=== PATIENT | male | born 1950 | race Caucasian/White ===

== ENCOUNTER 2018-11-01 14:28 | Emergency (ER) | payer MEDICARE, OTHER, SELFPAY ==
[2018-11-01 14:36] VITALS: BP 146/78; PULSE 125; RESP 18; TEMP 36.9; O2SAT 96; BMI 32.3
--- NOTE | 2018-11-01 14:43 | ED_ITS ---
HPI - Male Genitourinary <Evie Vazquez PA-C - Last Filed: 11/01/18 21:01> General Chief complaint: Urogenital-Male Stated complaint: pain with urination, constipated, red urine Time Seen by Provider: 11/01/18 14:40 Source: patient Mode of arrival: ambulatory Limitations: no limitations History of Present Illness HPI Narrative: This 68-year-old male comes to ED secondary to urinary symptoms. He states that last night, he developed a lot of urinary frequency, urinating every 30-40 minutes with urgency (he states he has frequent urination typically due to BPH, but this is much more). Today he developed dysuria, maybe with a pink tinge. He states that he felt like he had to have a bowel movement last night but did not. He had a normal bowel movement yesterday or the day before, can't remember which. Normally he does have a bowel movement every day. He denies abdominal pain. He denies any nausea or vomiting. He states that he had some dull flank pain a few hours ago that resolved on its own, does not feel like previous kidney stones. He has some rectal area discomfort when sitting. He states he has had some nasal and head congestion after exposure to a sick grandson, maybe some slight chills/sweats, no known fever. He denies any fever today. He denies any cough, wheeze, dyspnea, chest pain or other new symptoms on systems review. He is on chronic opioid therapy for post hepatic neuralgia, no medication changes Related Data Previous Rx's Medication Instructions Recorded levofloxacin [Levaquin] 500 mg PO DAILY 14 Days #14 tab 11/01/18 phenazopyridine [Pyridium] 200 mg PO Q8H PRN #6 tab 11/01/18 Allergies Allergy/AdvReac Type Severity Reaction Status Date / Time No Known Drug Allergies Allergy Verified 11/01/18 14:38 Review of Systems <Evie Vazquez PA-C - Last Filed: 11/01/18 21:01> Review of Systems ROS Unobtainable: All systems reviewed & are unremarkable except as noted in HPI and below PFSH <Evie Vazquez PA-C - Last Filed: 11/01/18 21:01> Medical History (Updated 11/01/18 @ 16:25 by Evie Vazquez PA-C) BPH (benign prostatic hyperplasia) (Chronic) HTN (hypertension) (Chronic) Non-insulin dependent type 2 diabetes mellitus (Chronic) Post herpetic neuralgia (Chronic) Surgical History (Updated 11/01/18 @ 15:07 by Evie Vazquez PA-C) History of melanoma excision (Resolved) Status post cholecystectomy (Resolved) Social History (Updated 11/01/18 @ 15:07 by Evie Vazquez PA-C) Smoking Status: Former smoker Social History (Updated 11/01/18 @ 15:07 by Evie Vazquez PA-C) Smoking Status: Former smoker Exam <Evie Vazquez PA-C - Last Filed: 11/01/18 21:01> Narrative Exam Narrative: GENERAL APPEARANCE: Patient sitting comfortably, in no distress. LUNGS: Clear to auscultation bilaterally. HEART: Rate and rhythm regular without murmur, normal S1 and S2, no S3 or S4. ABDOMEN: Soft, NT, ND, +BS x 4 quadrants, no CVAT. EXTREMITIES: No edema NEUROLOGIC: Alert, oriented, normal speech, gait, coordination DERMATOLOGIC: No exanthem RECTAL: No external masses or lesions, no palpable prostate mass, normal texture, tender, little stool in vault, guaiac negative Initial Vital Signs Initial Vital Signs: Vital Signs Temperature 98.5 F 11/01/18 14:36 Pulse Rate 125 H 11/01/18 14:36 Respiratory Rate 18 11/01/18 14:36 Blood Pressure 146/78 H 11/01/18 14:36 Pulse Oximetry 96 11/01/18 14:36 <Andreia Orourke DO - Last Filed: 11/02/18 07:52> Initial Vital Signs Initial Vital Signs: Vital Signs Temperature 98.5 F 11/01/18 14:36 Pulse Rate 125 H 11/01/18 14:36 Respiratory Rate 18 11/01/18 14:36 Blood Pressure 146/78 H 11/01/18 14:36 Pulse Oximetry 96 11/01/18 14:36 Course <Evie Vazquez PA-C - Last Filed: 11/01/18 21:01> Additional Information: Patient has symptoms typical of UTI but also some rectal discomfort and prostate tenderness, will treat for prostatitis. Advised return if any acutely worsening or new symptoms over the weekend such as vomiting or fever. Pharmacy advised him to check on whether dose of diabetic meds needs to be changed on Levaquin, however he was not sure what he is taking (verified with the pharmacy glimepiride 4 mg b.i.d.). Spoke with patient, has not ever had hypoglycemia. He does have a blood sugar monitor at home. Advised to continue same dosing over the weekend however to keep some orange or apple juice on hand if noticing symptoms, cut his dose in half. Advised to check morning blood sugar after taking 1st dose today. Orders Ordered: ED Orders 11/01/18 14:38 Urine Culture Stat Urine Microscopic Stat Vital Signs - 8 hr 11/01/18 14:36 11/01/18 16:28 Temperature 98.5 F Pulse Rate 125 H 74 Respiratory Rate 18 16 Blood Pressure 146/78 H 136/72 Pulse Oximetry 96 99 <Andreia Orourke DO - Last Filed: 11/02/18 07:52> Orders Ordered: ED Orders 11/01/18 14:38 Urine Culture Stat Urine Microscopic Stat Vital Signs - 8 hr 11/01/18 14:36 11/01/18 16:28 Temperature 98.5 F Pulse Rate 125 H 74 Respiratory Rate 18 16 Blood Pressure 146/78 H 136/72 Pulse Oximetry 96 99 MDM - Male Genitourinary <Evie Vazquez PA-C - Last Filed: 11/01/18 21:01> Lab Data Lab Results 11/01/18 Range/Units 14:38 Urine RBC 30-100/hpf H (0-5/HPF) Urine WBC 10-30/hpf H (0-5/HPF) Ur Squamous Epith Cells 0-1 /hpf (0-5/HPF) Amorphous Sediment 1+ Urine Bacteria Few (2-10) H (None) Ur Culture Indicated? Specimen cultured Urine Dip Bedside Urine Glucose Negative Bedside Urine Bilirubin - Negative Bedside Urine Ketone - Negative Urine Specific [place] 1.015 Bedside Urine Occult Blood +++ Bedside Urine pH 5.5 Bedside Urine Protein + 30 Bedside Urine Urobilinogen +/- 1mg Bedside Urine Nitrite - Negative Bedside Urine Leukocytes ++ 125 Esterase <Andreia Orourke DO - Last Filed: 11/02/18 07:52> Lab Data Lab Results 11/01/18 Range/Units 14:38 Urine RBC 30-100/hpf H (0-5/HPF) Urine WBC 10-30/hpf H (0-5/HPF) Ur Squamous Epith Cells 0-1 /hpf (0-5/HPF) Amorphous Sediment 1+ Urine Bacteria Few (2-10) H (None) Ur Culture Indicated? Specimen cultured Urine Dip Bedside Urine Glucose Negative Bedside Urine Bilirubin - Negative Bedside Urine Ketone - Negative Urine Specific [place] 1.015 Bedside Urine Occult Blood +++ Bedside Urine pH 5.5 Bedside Urine Protein + 30 Bedside Urine Urobilinogen +/- 1mg Bedside Urine Nitrite - Negative Bedside Urine Leukocytes ++ 125 Esterase Discharge Plan Departure Patient Disposition: Home Clinical Impression: Prostatitis Qualifiers: Prostatitis type: acute Qualified Code(s): N41.0 - Acute prostatitis Discharge Date/Time: 11/01/18 16:32 Interventions: ED Discharge Assessment Last Done: 11/01/18 16:28 Instructions: DI for Urinary Tract Infection (UTI), DI for Acute Prostatitis Activity Restrictions/Additional Instructions: Since you have some prostate tenderness on exam today and discomfort with sitting, I have ordered medicine to treat you for a prostate infection, which can also produce the urinary symptoms that you are having. Please start the antibiotic once daily. I have ordered a few days worth of urinary pain reliever as well to take if helpful. As we talked about, you should return if you have any acutely worsening symptoms or new symptoms such as fever or vomiting as the urine cultures will take a few days to come back. Please follow-up with your PCP next week to assess her progress. Prescriptions: New phenazopyridine [Pyridium] 200 mg tablet 200 mg PO Q8H PRN (Reason: urinary pain) Qty: 6 RF: 0 levofloxacin [Levaquin] 500 mg tablet 500 mg PO DAILY 14 Days Qty: 14 RF: 0 Referrals: [facility] [Other] <Andreia Orourke DO - Last Filed: 11/02/18 07:52> Cosign ED Attending Cj Attestation: I was immediately available in the department for consultation. Documentation has been reviewed. I agree with assessment and plan.
[2018-11-01 15:39] LABS: RBC Urine 30-100/HPF (0-5/HPF); WBC Urine 10-30/HPF (0-5/HPF)
[2018-11-01 15:40] LABS: Amorphous Sediment Urine 1+; Bacteria Urine Few (2-10); Culture Indicated Urine Specimen Cultured; Squamous Epithelial Cell Urine 0-1 /HPF (0-5/HPF)
[2018-11-01 16:28] VITALS: BP 136/72; PULSE 74; RESP 16; O2SAT 99
== END 2018-11-01 16:32 | disposition home or self-care (01) ==
PROVIDERS: Emergency Provider Internal Medicine
DX: N41.0 Acute prostatitis (principal)
CPT/HCPCS: 51798; 81003; 81015; 87077; 87086; 87186; 99283

== ENCOUNTER 2019-05-26 11:39 | Emergency (ER) | payer MEDICARE, OTHER, SELFPAY ==
[2019-05-26 11:47] VITALS: BP 154/43; PULSE 78; RESP 15; TEMP 36.4; O2SAT 97; BMI 32.9
--- NOTE | 2019-05-26 11:49 | DI.RAD.S_ITS ---
PROCEDURE: XR KNEE LT 3V INDICATIONS: pain, injury TECHNIQUE: 3 views of the knee were acquired. COMPARISON: None. FINDINGS: Bones: No fractures or dislocations. No suspicious bony lesions. No patella subluxation. Soft tissues: No joint effusion. No suspicious soft tissue calcifications. Vascular calcifications are noted in posterior left knee. IMPRESSION: No gross acute left knee fracture or dislocation. Dictated by: Lowell Lino M.D. on 05/26/2019 at 12:33 Approved by: Lowell Lino M.D. on 05/26/2019 at 12:37
--- NOTE | 2019-05-26 11:58 | ED.LOWEXIN ---
HPI - Extremity Injury (Lower) <FREDRICK Ndiaye - Last Filed: 05/26/19 18:21> General Chief Complaint: Extremity Injury, Lower Stated Complaint: fell on ice couple days ago L knee still pain Time Seen by Provider: 05/26/19 11:48 Source: patient Mode of arrival: Ambulatory History of Present Illness HPI Narrative: 68-year-old male presents to the emergency department today complaining of left knee pain for the past 4 days. Patient states on Sunday he slipped on the ice and felt like he hyperextended his left knee. He was able to walk on the knee afterwards but complained of a 5/10 sharp stabbing pain with weight-bearing and bending. Patient reports the pain is slightly better when the knee is completely flexed. He denies any history of injuries or surgeries to this knee. Patient has been using crutches to help with weight-bearing. He takes oxycodone daily due to post herpetic neuralgia and states that this has been controlling his pain. He denies hitting his head, neck pain, fevers, chills, nausea, vomiting, diarrhea, foot pain, numbness or tingling, or other concerns. Related Data Home Medications Medication Instructions Recorded Confirmed glimepiride 4 mg PO BID 05/26/19 05/26/19 lisinopril-hydrochlorothiazide 1 tab PO DAILY 05/26/19 05/26/19 oxycodone 5 mg PO TID PRN 05/26/19 05/26/19 oxycodone [OxyContin] 20 mg PO Q12H 05/26/19 05/26/19 tamsulosin 0.4 mg PO DAILY 05/26/19 05/26/19 Allergies Allergy/AdvReac Type Severity Reaction Status Date / Time No Known Drug Allergies Allergy Verified 05/26/19 11:47 Review of Systems <FREDRICK Ndiaye - Last Filed: 05/26/19 18:21> Review of Systems Narrative: REVIEW OF SYSTEMS: GENERAL: Denies fever or chills. HENT: No head trauma. EYES: No double vision or vision loss. CARDIOVASCULAR: No chest pain or syncope. RESPIRATORY: No shortness of breath or cough. GASTROINTESTINAL: No nausea, vomiting, diarrhea, or constipation. GENITOURINARY: No flank pain or dysuria. MUSCULOSKELETAL: Complains of left knee pain, see HPI. INTEGUMENTARY: No rash, lesions, or pruritus. NEURO: No numbness, tingling. PSYCH: No behavior or mood changes. Patient History <FREDRICK Ndiaye - Last Filed: 05/26/19 18:21> Medical History BPH (benign prostatic hyperplasia) (Chronic) HTN (hypertension) (Chronic) Non-insulin dependent type 2 diabetes mellitus (Chronic) Post herpetic neuralgia (Chronic) Surgical History History of melanoma excision (Resolved) Status post cholecystectomy (Resolved) Social History Smoking Status: Former smoker Smoking Status: Former smoker Exam <FREDRICK Ndiaye - Last Filed: 05/26/19 18:21> Initial Vital Signs Initial Vital Signs: Vital Signs Temperature 97.6 F 05/26/19 11:47 Pulse Rate 78 05/26/19 11:47 Respiratory Rate 15 05/26/19 11:47 Blood Pressure 154/43 H 05/26/19 11:47 Pulse Oximetry 97 05/26/19 11:47 PHYSICAL EXAMINATION: GENERAL: Well groomed, alert, and cooperative. Answers questions promptly and appropriately. Vital signs noted. HENT: Normocephalic, atraumatic. EYES: Symmetrical, sclera white, no periorbital swelling. CARDIOVASCULAR: S1 and S2 sounds normal. Regular rate and rhythm, no murmurs, clicks, or bruits. No pedal edema. RESPIRATORY: Normal respiratory rate, trachea midline, airway patent. No stridor, nasal flaring or accessory muscle use. Lungs are clear in all asher. MUSCULOSKELETAL: Left medial joint line tenderness, no patella tenderness, MCL pain with valgus stress. Negative drawer sign. Full range of motion including flexion and extension, some pain during initial flexion. Patient walks with limp due to knee pain. Equal tone and mass bilaterally. No spinal tenderness or deformities. EXTREMITIES: CMS intact. Pedal pulses 2+ and equal bilaterally. SKIN: Warm, dry, soft, appropriate color for ethnicity. No lesions, rashes, or wounds. NEURO: Alert and Oriented X 3. No sensory deficits. Light touch sensation equal to lower extremities. PSYCH: Appropriate affect and mood. <Teodora Connelly DO - Last Filed: 05/27/19 19:13> Initial Vital Signs Initial Vital Signs: Vital Signs Temperature 97.6 F 05/26/19 11:47 Pulse Rate 78 05/26/19 11:47 Respiratory Rate 15 05/26/19 11:47 Blood Pressure 154/43 H 05/26/19 11:47 Pulse Oximetry 97 05/26/19 11:47 Procedures <FREDRICK Ndiaye - Last Filed: 05/26/19 18:21> Orthopedic Splinting/Casting Injury #1: Side: left Upper Extremity Immobilizer: Stephen wrap Lower Extremity Injury Location: knee Post splinting neuro exam: intact Post splinting vascular exam: intact Placed by: Nursing Course <FREDRICK Ndiaye - Last Filed: 05/26/19 18:21> Course Course Narrative: Patient's knee was wrapped with an Stephen bandage, patient had crutches at bedside from previous injury. Patient was able to ambulate safely with crutches. Orders Ordered: ED Orders 05/26/19 11:49 XR knee LT 3V Stat Vital Signs Vital signs: Vital Signs - 8 hr 05/26/19 11:47 05/26/19 12:00 Temperature 97.6 F Pulse Rate 78 68 Respiratory Rate 15 18 Blood Pressure 154/43 H Blood Pressure [Right Arm] 133/43 L Pulse Oximetry 97 95 <Teodora Connelly DO - Last Filed: 05/27/19 19:13> Orders Ordered: ED Orders 05/26/19 11:49 XR knee LT 3V Stat Vital Signs Vital signs: Vital Signs - 8 hr 05/26/19 11:47 05/26/19 12:00 Temperature 97.6 F Pulse Rate 78 68 Respiratory Rate 15 18 Blood Pressure 154/43 H Blood Pressure [Right Arm] 133/43 L Pulse Oximetry 97 95 MDM - Extremity Injury (Lower) <FREDRICK Ndiaye - Last Filed: 05/26/19 18:21> Medical Records Attestation: I reviewed the patient's medical records. Lab Data Attestation: I reviewed the patient's lab results. Imaging Data Extremity x-ray #1: Radiologist's Impression: [address] [address] XRay Report Signed Patient: Lobo Martínez HMR#: [id number] : 9Acct:[id number] Age/Sex: 68 / MDate of Service: 05/26/19 Loc: ED Accession Number: [id number] Procedure: XR knee LT 3V Ordering Provider: Qian Shi PROCEDURE: XR KNEE LT 3V INDICATIONS: pain, injury TECHNIQUE: 3 views of the knee were acquired. COMPARISON: None. FINDINGS: Bones: No fractures or dislocations. No suspicious bony lesions. No patella subluxation. Soft tissues: No joint effusion. No suspicious soft tissue calcifications. Vascular calcifications are noted in posterior left knee. IMPRESSION: No gross acute left knee fracture or dislocation. Dictated by: Lowell Lino M.D. on 05/26/2019 at 12:33 Approved by: Lowell Lino M.D. on 05/26/2019 at 12:37 MDM Narrative Medical decision making narrative: 68yo male presents emergency department for left knee pain from a fall. Differential includes ligament injury versus meniscus injury (description of fall, description of pain, and mechanism of injury). Less likely fracture due to negative x-ray. Stephen wrap was given to patient. He was encouraged to use a hinged brace and not in a mobilizer if he felt like he needed more support. Patient was referred to Ortho for further follow-up. Patient agrees with plan of care and verbalizes understanding. Discharge Plan Departure Patient Disposition: Home Clinical Impression: Injury of knee, left Qualifiers: Encounter type: initial encounter Qualified Code(s): S89.92XA - Unspecified injury of left lower leg, initial encounter Discharge Date/Time: 05/26/19 13:05 Instructions: DI for Knee Pain Activity Restrictions/Additional Instructions: Thank you for entrusting me with your care today. As discussed, your x-rays are negative for any fractures. It is possible that you may have injured a ligament for a piece of cartilage. I suggest you purchase a hinged knee brace from any drug store to wear for stabilization while walking, this will also allow for range of motion and prevent muscle atrophy. Follow up with the orthopedic listed below. Return emergency department for new or worsening symptoms such as numbness or tingling, chest pain, shortness of breath, or other concerns. Prescriptions: No Action lisinopril-hydrochlorothiazide 20-12.5 mg tablet 1 tab PO DAILY RF: 0 tamsulosin 0.4 mg capsule 0.4 mg PO DAILY RF: 0 glimepiride 4 mg tablet 4 mg PO BID RF: 0 oxycodone 5 mg tablet 5 mg PO TID PRN (Reason: pain) RF: 0 oxycodone [OxyContin] 20 mg tablet,oral only,ext.rel.12 hr 20 mg PO Q12H RF: 0 Referrals: Lukas Fuentes MD [Physician] - (Left knee injury from hyperextension and fall, concern for tendon and or cartilage injury. Negative x-rays.)
[2019-05-26 12:00] VITALS: BP 133/43; PULSE 68; RESP 18; O2SAT 95
--- NOTE | 2019-05-26 12:58 | PC.NURSE ---
pt c/o left knee pain. states 2 weeks ago his knee gave out on him but was able to avoid falling. Solitario slipped on ice, falling onto knee, felt a pop. having continued pain.
== END 2019-05-26 13:05 | disposition home or self-care (01) ==
PROVIDERS: Emergency Provider Nurse Practitioner
DX: S89.92XA Unspecified injury of left lower leg, initial encounter (principal); W00.0XXA Fall on same level due to ice and snow, initial encounter
CPT/HCPCS: 73562; 99283

== ENCOUNTER → 2019-06-09 08:19 | Outpatient (CLI) | payer MEDICARE, OTHER, SELFPAY | PROVIDERS: Referring Provider Orthopaedic Surgery; Visit Provider Orthopaedic Surgery | DX: Z01.818 Encounter for other preprocedural examination (principal) | CPT/HCPCS: 93005 ==